=== PATIENT | female | born 1980 | race Caucasian/White ===

== ENCOUNTER 2016-08-06 11:39 | Emergency (ER) | payer OTHER ==
[2016-08-06 12:02] VITALS: BP 155/86
[2016-08-06] MEDS ORDERED: Ibuprofen TAB* 600 MG PO ONE (12:04)
--- NOTE | 2016-08-06 12:36 | RAD ---
HISTORY: Trauma, pain to left hand and wrist COMPARISONS: None VIEWS: 3, Frontal, lateral, and oblique views of the left wrist and distal forearm FINDINGS: BONE DENSITY: Normal. BONES: There is no displaced fracture. JOINTS: There is no arthropathy. ALIGNMENT: There is no dislocation. SOFT TISSUES: Unremarkable. OTHER FINDINGS: None. IMPRESSION: NO ACUTE OSSEOUS INJURY. IF SYMPTOMS PERSIST, RECOMMEND REPEAT IMAGING.
--- NOTE | 2016-08-06 12:36 | RAD ---
HISTORY: Trauma, pain in left hand and wrist COMPARISONS: None VIEWS: 4, Frontal, lateral, and oblique views of the left hand FINDINGS: BONE DENSITY: Normal. BONES: There is no displaced fracture. JOINTS: There is no arthropathy. ALIGNMENT: There is no dislocation. SOFT TISSUES: Unremarkable. OTHER FINDINGS: None. IMPRESSION: NO ACUTE OSSEOUS INJURY. IF SYMPTOMS PERSIST, RECOMMEND REPEAT IMAGING.
--- NOTE | 2016-08-06 12:55 | UC ---
Jonah Cormier Adam, scribed for CesarFeng leon MD on 08/06/16 at 1205 . Hand/Wrist HPI - HPI Summary HPI Summary: Nurse's Note: FELL IN DRIVEWAY AT HOME AROUND 1130, INJURED LEFT HAND. SWELLING AND BRUISING TO FINGERS AND KNUCKLES, LIMITED ROM. PT STATES PAIN RADIATES UP LEFT ARM. In Room: Pt states that she fell on her outstretched left hand because the ground was snowy and wet. She c/o pain, swelling, redness, limited ROM, and some tingling. She denies any URI or any other complaints. Pt had fusion surgery in her back in 2013 and she states that her doctor still has her out of work. Surgical Hx also includes choly, appy, and D&C. PMHx of DM and HLD. She denies any Hx of heart/lung/liver/kidney problems. Pt is a smoker. - History Of Current Complaint Chief Complaint: UCUpperExtremity Stated Complaint: HAND INJURY Time Seen by Provider: 08/06/16 12:04 Hx Obtained From: Patient Hx Last Menstrual Period: 09/05/15 Onset/Duration: Sudden Onset, Lasting Hours, Still Present Severity Initially: Moderate Severity Currently: Moderate Aggravating Factor(s): Movement Alleviating: Nothing Associated Signs And Symptoms: Positive: Swelling, Bruising - Allergies/Home Medications Allergies/Adverse Reactions: Allergies Allergy/AdvReac Type Severity Reaction Status Date / Time Codeine Allergy Severe GI Upset Verified 07/16/16 11:24 Home Medications: Home Medications metFORMIN* [Glucophage*] 1,000 mg PO BID 08/06/16 [History Confirmed 08/06/16] PMH/Surg Hx/FS Hx/Imm Hx Endocrine History Of: Reports: Diabetes Denies: Thyroid Disease Cardiovascular History Of: Denies: Cardiac Disorders, Hypertension, Pacemaker/ICD Respiratory History Of: Denies: COPD, Asthma GI/ History Of: Denies: Ulcer, Gastrointestinal Bleed, Renal Disease - Surgical History Surgical History: Yes Surgery Procedure, Year, and Place: APPENDECTOMY, CHOLECYSTECTOMY, DENTAL, TUBAL LIGATION, BACK SURGERY FUSION 2013 - Family History Known Family History: Positive: None - reviewed & noncontributory - Social History Occupation: Unemployed Lives: With Family - Significant other Alcohol Use: Occasionally Substance Use Type: None Smoking Status (MU): Heavy Every Day Tobacco Smoker Type: Cigarettes Amount Used/How Often: 1/2 PPD Have You Smoked in the Last Year: Yes Household Exposure Type: Cigarettes - Immunization History Most Recent Influenza Vaccination: none Most Recent Tetanus Shot: none Most Recent Pneumonia Vaccination: none Review of Systems Skin: Bruising - Left hand ENT: Negative Respiratory: Negative Musculoskeletal: Edema - Left hand, Myalgia - Left hand All Other Systems Reviewed And Are Negative: Yes Physical Exam Triage Information Reviewed: Yes Appearance: Well-Appearing, No Pain Distress, Well-Nourished Vital Signs: Initial Vital Signs Temp 98.5 F 08/06/16 11:55 Pulse 73 08/06/16 11:55 Resp 18 08/06/16 11:55 BP 155/86 08/06/16 11:55 Pulse Ox 98 08/06/16 11:55 Eyes: Positive: Conjunctiva Clear ENT: Positive: Hearing grossly normal, Pharynx normal, TMs normal. Negative: Muffled/hoarse voice Neck: Positive: Supple, No Lymphadenopathy Respiratory: Positive: Chest non-tender, Lungs clear, Normal breath sounds, No respiratory distress Cardiovascular: Positive: RRR, No Murmur Abdomen Description: Positive: Nontender, No Organomegaly, Soft Bowel Sounds: Positive: Present Musculoskeletal: Positive: Other: - LUE SHOWS FULL ROM AT SHOULDER AND ELBOW. PT REFUSES TO MOVE WRISTS OR FINGERS SECONDARY TO PAIN. THE PAIN IS MOST PROMINENT OVER THE DORSAL ASPECT OF THE METACARPALS. THERE IS SOME DISTAL RADIUS TENDERNESS AND MINIMAL SNUFF BOX TENDERNESS. X-RAYS SHOW NO ACUTE FRACTURE. Neurological: Positive: Alert Psychological: Positive: Age Appropriate Behavior Skin: Negative: rashes Diagnostics - Radiology HAND X-RAY Radiology Interpretation Completed By: Radiologist - IMPRESSION: NO ACUTE OSSEOUS INJURY. IF SYMPTOMS PERSIST, RECOMMEND REPEAT IMAGING. WRIST X-RAY Radiology Interpretation Completed By: ED Physician - NOTE IS MADE OF A SMALL DISCONTINUITY IN THE DORSAL MARGIN OF DISTAL RADIUS ABUTTING THE RADIAL CARPAL JOINT. THIS IS NOT THE AREA OF MAXIMUM PATIENT DISCOMFORT. PT HAS BEEN TOLD THAT IF SHE HAS CONTINUED DISCOMOFRT IN THIS AREA THEN SHE NEEDS A FOLLOW-UP X- RAY., Radiologist - IMPRESSION: NO ACUTE OSSEOUS INJURY. IF SYMPTOMS PERSIST, RECOMMEND REPEAT IMAGING. Hand/Wrist Course/Dx - Course Course Of Treatment: I discussed the diagnosis and treatment with the patient. She will elevate the hand with warm compresses. She will take ibuprofen and home opioids for discomfort. - Differential Dx/Diagnosis Differential Diagnosis/HQI/PQRI: Other - Contusion vs sprain vs fracture of left wrist and hand Provider Diagnoses: Contusion of the left wrist and hand with sprain secondary to fall. Discharge - Discharge Plan Condition: Stable Disposition: HOME Patient Education Materials: Wrist Injury (ED) Referrals: Gricelda López PA [Primary Care Provider] - Additional Instructions: Follow up with Gricelda López. WE DISCUSSED: 1. THERE IS A TINY AREA BETWEEN YOUR RADIUS AND WRIST BONES THAT MIGHT BE A SMALL BREAK. IF THIS AREA CONTINUES TO HURT IN 10 DAYS, RE CHECK IT. 2. USE SPLINT. UNTIL YOU ARE PAIN FREE. YOU WILL NEED TO BE REEXAMINED AT THAT TIME TO CHECK FOR FULL MOVEMENT. 3. ELEVATE. 4. WARM MOIST HEAT IN THE MORNING; ICE FOR DISCOMFORT. 5. RECHECK AT ANY TIME FOR INCREASED PAIN, OR DISABILITY. The documentation as recorded by the Jonah ray Adam accurately reflects the service I personally performed and the decisions made by me, Feng Jackson MD.
== END 2016-08-06 13:15 | disposition home or self-care (01) ==
LOC: UCEAST 11:39
DX: S60.212A Contusion of left wrist, initial encounter (principal); S63.92XA Sprain of unspecified part of left wrist and hand, initial encounter; W00.0XXA Fall on same level due to ice and snow, initial encounter; Y93.89 Activity, other specified; Y92.412 Parkway as the place of occurrence of the external cause; Z88.5 Allergy status to narcotic agent; Z90.49 Acquired absence of other specified parts of digestive tract; F17.210 Nicotine dependence, cigarettes, uncomplicated
CPT/HCPCS: 99211; A9270-GY; G0463

== ENCOUNTER 2017-06-25 08:56 | Emergency (ER) | payer OTHER ==
--- OUTSIDE RECORDS SUMMARY | 2017-06-25 09:07 | XMS REPORT | Clinical Summary ---
:1980 Author Organization [place] [facility] Address [address] [place] [address] Phone Allergies, Adverse Reactions, Alerts Allergy Name Reaction Description Start Date Severity Status Provider AUGMENTIN vomitting Severe Active Oliva Larsen RN CODENE Stomach pain Critical Active MENDOZA GALLERANI PA Conditions or Problems Problem Name Problem Onset Status Entry Provider Comment Standard Annotate Code Date Date Description Back pain with 729.2 Active MENDOZA Neuralgia, radiculopathy 12/05 12/05 GALLERANI neuritis, and PA radiculitis, unspecified Obesity 278.00 Active MENDOZA Obesity, 03/02 03/02 GALLERANI unspecified PA Sleep pattern 780.50 Active MENDOZA Unspecified disturbance 10/29 GALLERANI sleep PA disturbance Tobacco use Active MENDOZA Tobacco use 10/29 10/29 GALLERANI disorder PA Passive smoke Active MENDOZA Other specified exposure 10/29 10/29 GALLERANI personal PA history presenting hazards to health Hyperlipidemia 272.2 Active MENDOZA Mixed mixed 10/30 10/30 GALLERANI hyperlipidemia PA Diabetes 250.00 Active CHRIS Diabetes mellitus, type 11/15 11/21 OKWOR JEWEL BEARING TURNER mellitus II, controlled without mention of complication, type II or unspecified type, not stated as uncontrolled Medication List Medication Instructions Start Stop Generic NDC Status Provider Patient Date Date Name Instruction OXYCODONE-ACET 1 tab by OXYCODONE-A 5368197 Active MENDOZA AMINOPHEN mouth three 08/21 CETAMINOPHE 5125 GALLERANI 5-325 MG ORAL times a day N PA TABLET MDD:3 BACLOFEN 10 MG 1 tab by BACLOFEN 5383787 Active MENDOZA ORAL TABLET mouth three 10/29 9660 GALLERANI times a day PA NYSTOP 306484 apply twice NYSTATIN 5858829 Active SALAZAR UNIT/GM daily to 10/29 0802 KIM EXTERNAL affected area HERNANDEZ PA POWDER as needed NYSTATIN apply to area NYSTATIN 7555586 Active SALAZAR 199259 UNIT/GM Twice a Day 10/29 0715 IKM EXTERNAL HERNANDEZ PA OINTMENT ATORVASTATIN 1 by mouth at ATORVASTATI 2376461 Active MENDOZA CALCIUM 40 MG bedtime 10/30 N CALCIUM 5898 GALLERANI ORAL TABLET PA PEN NEEDLES To use as INSULIN PEN 7045630 Active MENDOZA 31G X 6 MM directed Dx 11/09 NEEDLE 0118 GALLERANI E11.9 PA TRIAMCINOLONE apply Twice a TRIAMCINOLO 9379120 Active MENDOZA ACETONIDE 0.1 Day to 09/02 NE 0415 GALLERANI % EXTERNAL afffected ACETONIDE PA CREAM area METFORMIN HCL TAKE ONE METFORMIN 0425392 Active HEIDE 1000 MG ORAL TABLET BY 10/18 HCL 8705 JUNITO WHITE TABLET MOUTH TWICE A MD DAY GABAPENTIN 300 2 in am then GABAPENTIN 3968786 Active HEIDE MG ORAL 3 in pm and 3 08/21 2705 JUNITO WHITE CAPSULE at hs FREESTYLE LITE TEST FASTING GLUCOSE 7594334 Active HEIDE TEST IN VITRO BLOOD SUGAR 08/27 BLOOD 0819 JUNITO WHITE STRIP IN THE MD MORNING AND BEFORE BED AND NEEDED MAXIMUM DAILY DOSE=6 TIMES REMERON 30 MG TAKE ONE MIRTAZAPINE 5342090 Active HEIDE ORAL TABLET TABLET BY 02/14 0730 JUNITO WHITE MOUTH AT MD BEDTIME ALCOHOL PADS use as ALCOHOL 6810584 Active HEIDE 70 % PAD directed 11/09 SWABS 0128 JUNITO WHITE MDD=6 FREESTYLE 28G TEST FASTING LANCETS 7415053 Active HEIDE LANCETS BLOOD SUGAR 3001 JUNITO WHITE IN MORNING MD AND BEFORE BED AND NEEDED MAXIMUM DAILY DOSE=6 TESTS Vital Signs Date Name Value Unit Range Description blood pressure, diastolic 80 mm[Hg] BP barakat blood pressure, systolic 124 mm[Hg] BP sys height E&M 65 [in_us] Bdy height pulse rate E&M 84 /min Heart rate respiratory rate E&M 18 /min Resp rate temperature E&M 98.3 [degF] Body temperature weight E&M 199 [lb_av] Weight Measured blood pressure, diastolic 83 mm[Hg] BP barakat blood pressure, systolic 138 mm[Hg] BP sys height E&M 65 [in_us] Bdy height pulse rate E&M 66 /min Heart rate respiratory rate E&M 14 /min Resp rate temperature E&M 98.0 [degF] Body temperature weight E&M 193 [lb_av] Weight Measured blood pressure, diastolic 85 mm[Hg] BP barakat blood pressure, systolic 134 mm[Hg] BP sys height E&M 65 [in_us] Bdy height pulse rate E&M 75 /min Heart rate respiratory rate E&M 16 /min Resp rate temperature E&M 97.6 [degF] Body temperature weight E&M 199 [lb_av] Weight Measured Diagnostic Results Date Name Value Unit Range Description Lab Report: CMP, Lipid Panel, A1C - Chemistry triglyceride, serum, fasting 97 mg/dL cholesterol, serum 166 mg/dL HDL cholesterol, serum 38.7 mg/dL LDL cholesterol, serum 108 mg/dL hemoglobin A1C, blood, as % of 5.1 % Less than 6.0 total hemoglobin potassium, serum 4.5 mmol/L 3.5-5.0 chloride, serum 104 mmol/L 428-715 7536/05/12 carbon dioxide, venous blood 26 mmol/L 22-32 anion gap, serum 7 mmol/L 2-11 blood glucose, random 93 mg/dL 70-100 sodium, serum 137 mmol/L 943-147 6146/05/12 urea nitrogen, blood 9 mg/dL 6-24 creatinine, serum 0.60 mg/dL 0.51-0.95 urea nitrogen/creatinine ratio, 15.0 8-20 serum calcium, serum 9.6 mg/dL 8.6-10.3 protein, total, serum 7.1 g/dL 6.4-8.9 albumin, serum 4.5 g/dL 3.2-5.2 globulin, serum 2.6 2-4 albumin/globulin ratio, serum 1.7 1-3 alkaline phosphatase, serum 73 U/L 34-104 alanine aminotransferase (SGPT), 57 U/L 7-52 serum aspartate aminotransferase (SGOT), 32 U/L 13-39 serum Estimated Glomerular Filtration 113.8 (?) mL/min/1.73m2 >60 Rate (calc) Lab Report: CMP, Lipid Panel, A1C - Genetics/fertility eGFR if 146.3 (?) mL/min/1.73m2 >60 Lab Report: COMPREHENSIVE METABOLIC PANEL, LDL CHOLESTEROL PROFILE, GLYC ... - Chemistry albumin, serum 3.9 g/dL 3.4-5.0 globulins, serum, total 3.1 g/dL 1.9-4.3 albumin/globulin ratio, serum 1.3 ratio aspartate aminotransferase (SGOT), 51 U/L 15-37 serum alanine aminotransferase (SGPT), 74 U/L 12-78 serum cholesterol, serum 180 mg/dL <200 triglyceride, serum, fasting 143 mg/dL <150 HDL cholesterol, serum 42 mg/dL >40 LDL cholesterol, serum 109 mg/dL < 100 hemoglobin A1C, blood, as % of 5.5 % 4.2-6.3 total hemoglobin Estimated Average Glucose 111 mg/dL blood glucose, random 86 mg/dL 74-106 urea nitrogen, blood 9 mg/dL 7-18 creatinine, serum 0.6 mg/dL 0.6-1.3 Estimated Glomerular Filtration >60 mL/min mL/min/1.73m2 > 60 Rate (calc) Glomerular Filtration rate >60 mL/min >60 [place] urea nitrogen/creatinine ratio, 15.0 ratio serum sodium, serum 140 mmol/L 835-938 2822/09/20 potassium, serum 4.3 mmol/L 3.5-5.1 chloride, serum 106 mmol/L 98-107 carbon dioxide, venous blood 24 mmol/L 21-32 anion gap, serum 10 mEq/L 8-16 calcium, serum 9.0 mg/dL 8.5-10.1 protein, total, serum 7.0 g/dL 6.4-8.2 Lab Report: URINE MICROALBUMIN, CMP, A1C - Chemistry chloride, serum 104 mmol/L 733-125 3190/12/27 carbon dioxide, venous blood 26 mmol/L 22-32 anion gap, serum 6 mmol/L 2-11 blood glucose, random 79 mg/dL 70-100 urea nitrogen, blood 10 mg/dL 6-24 creatinine, serum 0.56 mg/dL 0.51-0.95 urea nitrogen/creatinine ratio, 17.9 8-20 serum calcium, serum 9.3 mg/dL 8.6-10.3 protein, total, serum 6.9 g/dL 6.4-8.9 albumin, serum 4.5 g/dL 3.2-5.2 globulin, serum 2.4 2-4 albumin/globulin ratio, serum 1.9 1-3 alkaline phosphatase, serum 66 U/L 34-104 alanine aminotransferase (SGPT), 37 U/L 7-52 serum aspartate aminotransferase (SGOT), 24 U/L 13-39 serum Estimated Glomerular Filtration 123.2 (?) mL/min/1.73m2 >60 Rate (calc) hemoglobin A1C, blood, as % of 5.2 % Less than 6.0 total hemoglobin potassium, serum 4.3 mmol/L 3.5-5.0 sodium, serum 136 mmol/L 119-000 1049/12/27 microalbumin/creatinine ratio, TNP ug/mg ug/mg <31 urine creatinine, random, urine 60.89 mg/dL Lab Report: URINE MICROALBUMIN, CMP, A1C - Genetics/fertility eGFR if 158.4 (?) mL/min/1.73m2 >60 Lab Report: URINE MICROALBUMIN, CMP, A1C - Urinalysis microalbumin/total urine volume < 15.0 mg/L mg/L Encounters Code Encounter Date Provider Facility CPT-65690 Ofc Vst, Est Level III HEIDE CLAIRE [facility] 11:44:41 EDT CPT-01909 Ofc Vst, Est Level III CHRIS HOPPER [facility] 16:34:05 EDT CPT-36781 Ofc Vst, Est Level III MENDOZA ARIAS [facility] 13:00:29 EST CPT-39652 Ofc Vst, Est Level III MENDOZA ARIAS [facility] 16:02:21 EDT CPT-40971 Ofc Vst, Est Level III MENDOZA ARIAS [facility] 11:40:20 EDT CPT-97688 Ofc Vst, Est Level III MENDOZA ARIAS [facility] 13:04:44 EDT CPT-41870 Ofc Vst, Est Level III MENDOZA ARIAS [facility] 18:39:50 EDT CPT-37910 Ofc Vst, Est Level III MENDOZA ARIAS [facility] 13:28:20 EDT CPT-39764 Ofc Vst, Est Level III MENDOZA AHUJA [facility] 13:25:36 EDT CPT-66306 Ofc Vst, Est Level IV MENDOZA AHUJA [facility] 17:29:21 EST CPT-82335 Ofc Vst, Est Level III MENDOZA AHUJA [facility] 07:46:09 EST CPT-66803 Ofc Vst, Est Level III MENDOZA AHUJA [facility] 17:00:11 EDT CPT-12401 Ofc Vst, Est Level III MENDOZA AHUJA [facility] 13:02:06 EDT CPT-47104 Ofc Vst, Est Level III MENDOZA AHUJA [facility] 10:17:08 EDT CPT-77589 Ofc Vst, Est Level III MENDOZA AHUJA [facility] 13:58:23 EDT CPT-74076 Ofc Vst, Est Level III MENDOZA AHUJA [facility] 12:46:30 EDT CPT-26142 Ofc Vst, New Level II MENDOZA AHUJA [facility] 11:49:11 EDT Procedures Code Procedure Name Date Entry Date Standard Description CPT-69226 Venipuncture 11:44:38 EDT CPT-61987 Venipuncture 16:34:05 EDT CPT-01326 Venipuncture 13:00:29 EST CPT-37159 Venipuncture 10:12:48 EDT
[2017-06-25 09:19] VITALS: BP 129/79
[2017-06-25] MEDS ORDERED: Albuterol/Ipratropium NEB.SOL* Albuterol 2.5 MG/Ipratropium 0.5 MG 3 ML INH ONE (09:43)
--- NOTE | 2017-06-25 09:52 | UC ---
Respiratory Complaint HPI - HPI Summary HPI Summary: harsh cough for one week , ears plugged, pain and burning with urination, no fever - History of Current Complaint Hx Obtained From: Patient Hx Last Menstrual Period: 09/05/15 ?: No Onset/Duration: Gradual Onset, Lasting Days - 7, Still Present Timing: Constant Severity Initially: Mild Severity Currently: Moderate Character: Cough: Productive Aggravating Factors: Nothing Alleviating Factors: Nothing Associated Signs And Symptoms: Positive: Pleuritic Chest Pain, URI <Alisha Bo - Last Filed: 06/26/17 19:25> <Leigh Zaragoza - Last Filed: 06/27/17 09:14> - History of Current Complaint Chief Complaint: UCRespiratory Stated Complaint: COUGH, BURNING URINATION Time Seen by Provider: 06/25/17 09:36 - Allergies/Home Medications Allergies/Adverse Reactions: Allergies Allergy/AdvReac Type Severity Reaction Status Date / Time Amoxicillin [From Augmentin] AdvReac Severe GI Upset Verified 06/25/17 09:12 Clavulanic Acid AdvReac Severe GI Upset Verified 06/25/17 09:12 [From Augmentin] Codeine AdvReac Severe GI Upset Verified 06/25/17 09:12 Home Medications: Home Medications Meloxicam 06/25/17 [History] PMH/Surg Hx/FS Hx/Imm Hx Previously Healthy: No Endocrine History: Diabetes - Surgical History Surgical History: Yes Surgery Procedure, Year, and Place: APPENDECTOMY, CHOLECYSTECTOMY, DENTAL, TUBAL LIGATION, BACK SURGERY FUSION 2013 - Family History Known Family History: Positive: None - reviewed & noncontributory - Social History Occupation: Disabled Lives: With Family Alcohol Use: None Substance Use Type: None Smoking Status (MU): Current Every Day Smoker Type: Cigarettes Amount Used/How Often: 1/2 PPD Have You Smoked in the Last Year: Yes Household Exposure Type: Cigarettes Cessation Counseling: Counseled 3+Min - 10 Min - Immunization History Most Recent Influenza Vaccination: none Most Recent Tetanus Shot: none Most Recent Pneumonia Vaccination: none <Alisha Bo - Last Filed: 06/26/17 19:25> Review of Systems Constitutional: Negative Skin: Negative Eyes: Negative ENT: Negative Respiratory: Negative Cardiovascular: Negative Gastrointestinal: Negative Genitourinary: Negative Motor: Negative Neurovascular: Negative Musculoskeletal: Negative Neurological: Negative Psychological: Negative Is Patient Immunocompromised?: No All Other Systems Reviewed And Are Negative: Yes <Alisha Bo - Last Filed: 06/26/17 19:25> Physical Exam Triage Information Reviewed: Yes Appearance: No Pain Distress, Well-Nourished, Ill-Appearing - mild Vital Signs: Initial Vital Signs Temp 98.5 F 06/25/17 09:14 Pulse 78 06/25/17 09:14 Resp 16 06/25/17 09:14 BP 129/79 06/25/17 09:14 Pulse Ox 97 06/25/17 09:14 Vital Signs Reviewed: Yes Eye Exam: Normal Eyes: Positive: Conjunctiva Clear ENT Exam: Normal ENT: Positive: Normal ENT inspection, Hearing grossly normal, Pharynx normal, Nasal congestion, Uvula midline, Other - tm with b/l cerumen impaction. Negative: Tonsillar exudate, Trismus, Muffled voice, Hoarse voice, Sinus tenderness Dental Exam: Normal Neck exam: Normal Neck: Positive: Supple, Nontender Respiratory Exam: Normal Respiratory: Positive: Chest non-tender, No respiratory distress, No accessory muscle use, Wheezing Cardiovascular Exam: Normal Cardiovascular: Positive: RRR, No Murmur, Pulses Normal, Brisk Capillary Refill Musculoskeletal Exam: Normal Musculoskeletal: Positive: Strength Intact, ROM Intact, No Edema Neurological Exam: Normal Neurological: Positive: Alert, Muscle Tone Normal Psychological Exam: Normal Skin Exam: Normal <Alisha Bo - Last Filed: 06/26/17 19:25> Vital Signs: Initial Vital Signs Temp 98.5 F 06/25/17 09:14 Pulse 78 06/25/17 09:14 Resp 16 06/25/17 09:14 BP 129/79 06/25/17 09:14 Pulse Ox 97 06/25/17 09:14 <Leigh Zaragoza - Last Filed: 06/27/17 09:14> UC Diagnostic Evaluation - Laboratory O2 Sat by Pulse Oximetry: 97 <Alisha Bo - Last Filed: 06/26/17 19:25> Respiratory Course/Dx - Course Course Of Treatment: ears flushed, tm wnl--cefnir, albuterol, increase fluids follow with pcp - Differential Dx/Diagnosis Provider Diagnoses: Cerumen impaction resolved, acute bronchitis <Alisha Bo - Last Filed: 06/26/17 19:25> Discharge <Alisha Bo - Last Filed: 06/26/17 19:25> <Leigh Zaragoza - Last Filed: 06/27/17 09:14> - Discharge Plan Condition: Stable Disposition: HOME Prescriptions: Albuterol 2.5MG/3ML (0.083%)* [Ventolin 2.5 MG/3 ML NEB.BERYL*] 2.5 mg INH Q4H #1 box Albuterol HFA INHALER* [Ventolin HFA Inhaler*] 2 puff INH Q4H PRN #1 mdi PRN Reason: cough Cefdinir [Cefdinir 300 MG CAP] 300 mg PO BID #14 cap Fluconazole [Diflucan 150 MG (NF)] 150 mg PO ONCE #2 tab predniSONE TAB* [Deltasone TAB*] 20 mg PO DAILY #15 tab Patient Education Materials: Cerumen Impaction (ED), Acute Bronchitis (ED) Referrals: Kylee Mccloud MD [Primary Care Provider] - If Needed Attestation Statement User Type: Provider - I was available for consult. This patient was seen by the [facility]. The patient was not presented to, seen by, or examined by me. -Luan <Leigh Zraagoza - Last Filed: 06/27/17 09:14>
[2017-06-25] MEDS ORDERED: Albuterol 2.5 MG/3 ML NEB.SOL* (0.083%) INH ONE (09:54)
[2017-06-25] MEDS ORDERED: Ipratropium 0.5MG/2.5ML NEB* 0.5 MG/2.5 ML NEB.SOLN INH ONE (09:55)
== END 2017-06-25 10:49 | disposition home or self-care (01) ==
LOC: UCEAST 08:56
DX: H61.20 Impacted cerumen, unspecified ear (principal); J20.9 Acute bronchitis, unspecified; E11.9 Type 2 diabetes mellitus without complications; F17.210 Nicotine dependence, cigarettes, uncomplicated; Z88.3 Allergy status to other anti-infective agents; Z88.5 Allergy status to narcotic agent
CPT/HCPCS: 81003; 81025; 87086; 99212; G0463; J7644